=== PATIENT | female | born 1990 | race American Indian/Alaskan Native ===

== ENCOUNTER 2017-01-31 15:40 | Emergency (ER) | payer SELFPAY ==
[2017-01-31 15:53] VITALS: BP 126/76
== END 2017-01-31 19:12 | disposition home or self-care (01) ==
LOC: ED 15:40
DX: R21 Rash and other nonspecific skin eruption (principal); Z53.21 Procedure and treatment not carried out due to patient leaving prior to being seen by health care provider

== ENCOUNTER 2017-12-25 00:40 | Emergency (ER) | payer SELFPAY ==
[2017-12-25 00:49] VITALS: BP 141/73
[2017-12-25 01:10] LABS: Basophils % (Auto) 0.5 % (0.0-1.8); Eosinophils # (Auto) 0.3 K/mm3 (0.0-0.4); Eosinophils % (Auto) 3.7 % (0.0-4.3); Hemoglobin 13.7 gm/dl (10.1-14.3); Mean Corpuscular HGB Conc 32 % (30-34); Mean Corpuscular Hemoglobin 30 pg (28-32); Mean Corpuscular Volume 93 fl (79-97); Monocytes # (Auto) 0.5 K/mm3 (0.0-0.8); Monocytes % (Auto) 5.6 % (0.0-7.3); Platelet Count 243 K/mm3 (140-440); Red Blood Count 4.63 M/mm3 (3.65-5.03); Red Cell Distribution Width 14.4 % (13.2-15.2)
[2017-12-25 01:40] LABS: Alanine Aminotransferase 57 units/L (7-56); Albumin 4.2 g/dL (3.9-5); BUN/Creatinine Ratio 15; Blood Urea Nitrogen 9 mg/dL (7-17); Calcium 8.8 mg/dL (8.4-10.2); Hemolysis Index 31
[2017-12-25 02:06] LABS: Amorphous Crystals,Urine 1+; Bilirubin,Urine NEG (Negative); Blood,Urine NEG (Negative); Color,Urine Yellow (Yellow); Mucus,Urine FEW /HPF; Protein,Urine <15 mg/dL mg/dL (Negative)
== END 2017-12-25 00:54 | disposition left against medical advice (07) ==
LOC: ED 00:40
DX: R10.9 Unspecified abdominal pain (principal); Z53.21 Procedure and treatment not carried out due to patient leaving prior to being seen by health care provider
CPT/HCPCS: 36415; 80053; 81001; 85025

== ENCOUNTER 2019-07-17 11:00 | Outpatient (CLI) | payer BC | END 2019-07-17 23:59 | disposition home or self-care (01) | LOC: SLR 11:00 | PROVIDERS: ATTEND Otolaryngology | DX: G47.33 Obstructive sleep apnea (adult) (pediatric) (principal); F17.200 Nicotine dependence, unspecified, uncomplicated | CPT/HCPCS: G0399 ==

== ENCOUNTER 2019-07-19 11:00 | Outpatient (CLI) | payer BC | END 2019-07-19 11:01 | disposition home or self-care (01) | LOC: SLR 11:00 | PROVIDERS: ATTEND Otolaryngology | DX: G47.33 Obstructive sleep apnea (adult) (pediatric) (principal) | CPT/HCPCS: 95811 ==

== ENCOUNTER 2021-11-03 21:32 | Outpatient (CLI) | payer OTHER ==
[2021-11-03 21:56] VITALS: BP 128/81
--- NOTE | 2021-11-04 00:51 | Ultrasound Report ---
ULTRASOUND OBSTETRIC LIMITED INDICATION / CLINICAL INFORMATION: EFT AND ANGELI. Clinical Gestational Age (GA) in weeks, days: 37 weeks 4 days TECHNIQUE: Transabdominal. COMPARISON: None available. FINDINGS: NUMBER: Single PRESENTATION: cephalic AMNIOTIC FLUID VOLUME: normal AMNIOTIC FLUID INDEX (ANGELI) in cm (if measured): 13.7 MEASUREMENTS: - Biparietal Diameter = 9.4 cm = 38 weeks, 3 days - Head Circumference = 32.8 cm = 37 weeks, 2 days - Abdominal Circumference = 30.4 cm = 34 weeks, 3 days - Femur Length = 7.2 cm = 36 weeks, 6 days - Estimated Weight (in grams, if calculated): 2770 - Heart Rate (beats per minute): 117 ADDITIONAL FINDINGS: None. AVERAGE ULTRASOUND AGE (AUA) in weeks, days = 36 weeks 5 days IMPRESSION: 1. Single intrauterine with AUA of 36 weeks, 5 days 2. Amniotic fluid volume is normal. Signer Name: Juanita Breen MD Signed: 11/04/2021 12:46 AM Workstation Name: [id number]
== END 2021-11-04 00:35 | disposition home or self-care (01) ==
LOC: TRG 21:32 → APU 21:34 → TRG 11-04 00:35
PROVIDERS: ATTEND Obstetrics & Gynecology
DX: O26.853 Spotting complicating pregnancy, third trimester (principal); Z3A.31 31 weeks gestation of pregnancy
CPT/HCPCS: 59025; 76816